=== PATIENT | male | born 2000 | race Caucasian/White ===

== ENCOUNTER 2021-08-16 18:50 | Emergency (ER) | payer MEDICAID, OTHER ==
[~2021-08-16] VITALS: Ht 180.3 cm; Wt 122.5 kg
[2021-08-16 19:32] VITALS: BP 150/102
[2021-08-16] MEDS ORDERED: RX-ALBUTEROL INHALER 8.5 GM HFA (PROAIR) IH STA (19:57)
[2021-08-16] MEDS ORDERED: RX-ONDANSETRON 4 MG ODT (ZOFRAN) PPK #4 PO STA (19:57)
--- NOTE | 2021-08-16 20:22 | Diagnostic Imaging Report ---
INDICATION: SOA. TECHNIQUE: Single view chest 8:06 PM. CORRELATION STUDY: None FINDINGS: The heart size, mediastinal configuration and pulmonary vascularity are within normal limits. The lungs are clear with no consolidating infiltrate. There is no significant effusion or pneumothorax. IMPRESSION: 1. Negative for acute abnormality of the chest. Dictated by: Dictated on workstation # [id number]
--- NOTE | 2021-08-16 20:43 | ED Cough/URI ---
General Chief Complaint: Cough/Cold/Flu Symptoms Stated Complaint: SHIPMAN, COUGH, DIZZY, CONGESTION Nursing Triage Note: Pt arrives via POV from home for c/o cough, SOB on exertion, et generally not feeling well; onset four days ago. Pt reports taking a COVID test at the onset of his symptoms et the day after, both with negative results. Pt reports taking a hot shower today et felt like he may pass out. Pt also reports intermittent N/V. History of Present Illness Date Seen by Provider: Aug 16, 2021 Time Seen by Provider: 19:32 Initial Comments 20-year-old male reports cough and congestion that began approximately 4 days ago. He took a Covid test on the day of symptoms and the day after they started with a negative result. He has received his first and second vaccine in approximately February and March 2021. He does not have a specific known e xposure to Covid. He has not received a flu vaccine. He has been taking Zohra- Upsala cough and cold medicine. He has had any nausea or vomiting in 3 days. He denies any diarrhea. He reports normal appetite and intake. Timing/Duration: intermittent Severity/Quality: mild, productive cough Prior Episodes/Possible Cause: no prior episodes Modifying Factors: Improves With Rest Associated Symptoms: cough, muscle aches, nasal congestion Allergies and Home Medications Allergies Coded Allergies: No Known Drug Allergies (Unverified , 08/16/21) Patient Home Medication List Home Medication List Reviewed: Yes Review of Systems Review of Systems Constitutional: see HPI, weakness EENTM: see HPI, nose congestion Respiratory: see HPI, cough; No dyspnea on exertion, No short of breath Cardiovascular: no symptoms reported, see HPI Gastrointestinal: no symptoms reported, see HPI; No nausea, No vomiting Musculoskeletal: no symptoms reported, see HPI All Other Systems Reviewed Negative Unless Noted: Yes Past Fkamnfp-Pyfkbd-Cbkuvt Hx Patient Social History Tobacco Use?: No Use of E-Cig and/or Vaping dev: No Substance use?: No Alcohol Use?: No Pt feels they are or have been: No Immunizations Up To Date Influenza Vaccine Up-to-Date: No; Not Current COVID19 Vaccine Systems [employer]: [employer] Medical History Reviewed Nursing Family Hx Physical Exam Vital Signs - First Documented 08/16/21 19:32 Temp 37.1 Pulse 89 Resp 18 B/P (MAP) 150/102 (118) Pulse Ox 98 O2 Delivery Room Air Capillary Refill : Less Than 3 Seconds Height: '" Weight: lbs. oz. kg; 37.00 BMI Method: General Appearance: WD/WN, no apparent distress HEENT: PERRL/EOMI, normal ENT inspection, TMs normal, pharynx normal Neck: non-tender, full range of motion, supple, normal inspection Respiratory: chest non-tender, no respiratory distress, no accessory muscle use, decreased breath sounds Cardiovascular: normal peripheral pulses, regular rate, rhythm Gastrointestinal: normal bowel sounds, non tender, soft Neurologic/Psychiatric: no motor/sensory deficits, alert, normal mood/affect, oriented x 3 Skin: normal color, warm/dry Progress/Results/Core Measures Suspected Sepsis SIRS Temperature: Pulse: 89 Respiratory Rate: 18 Blood Pressure 150 /102 Mean: 118 Results/Orders Lab Results Laboratory Tests Test 08/16/21 19:27 Range/Units Influenza Type A Antigen NEGATIVE NEGATIVE Influenza Type B Antigen NEGATIVE NEGATIVE My Orders Orders - FRANCESCA ALVA Coronavirus Sars-Cov-2 So 2018 (08/16/21 19:43) Influenza A & B Antigens (08/16/21 19:44) Chest 1 View, Ap/Pa Only (08/16/21 19:56) Rx-Ondansetron Po (Rx-Zofran Po) (08/16/21 19:57) Rx-Albuterol Inhaler (Rx-Ventolin Hfa In (08/16/21 19:57) Vital Signs/I&O 08/16/21 08/16/21 19:32 19:32 Temp 37.1 Pulse 89 Resp 18 B/P (MAP) 150/102 (118) Pulse Ox 98 O2 Delivery Room Air Room Air Capillary Refill : Less Than 3 Seconds Blood Pressure Mean: 118 Diagnostic Imaging Diagonstic Imaging: Xray Plain Films/CT/US/NM/MRI: chest Comments NAME: [facility] REC#: [id number] PT STATUS: REG ER : 2000 PHYSICIAN: FRANCESCA ALVA ADMIT DATE: 08/16/21/ER Draft Date of Exam:08/16/21 CHEST 1 VIEW, AP/PA ONLY INDICATION: SOA. TECHNIQUE: Single view chest 8:06 PM. CORRELATION STUDY: None FINDINGS: The heart size, mediastinal configuration and pulmonary vascularity are within normal limits. The lungs are clear with no consolidating infiltrate. There is no significant effusion or pneumothorax. IMPRESSION: 1. Negative for acute abnormality of the chest. Dictated on workstation # [id number] Dict: 08/16/212020 Trans: 08/16/212020 DO [id number] Interpreted by: EBER BOSE DO Electronically signed by: Reviewed: Reviewed by Me Departure Impression Primary Impression: Person under investigation for COVID-19 Additional Impression: Cough Disposition: HOME, SELF-CARE Condition: Improved Departure-Patient Inst. Decision time for Depature: 20:40 Referrals: LIANG NÚÑEZ MD (PCP/Family) Primary Care Physician Patient Instructions: COVID-19 (DC) Add. Discharge Instructions: Use the inhaler 2 puffs every 4-6 hours as needed for shortness of breath or chest tightness. Use the Zofran every 6-8 hours for nausea or vomiting. Continue to take your Zohra-Upsala cough and cold medicine. Drink 16 oz of Water every 2 hours, while awake. Walk for 5 to 10 minutes every hour while awake and take deep breaths. Take a multivitamin with vitamin C, D and zinc. Call your primary care provider if your symptoms are not improving or worsen. Sleep on your stomach. Alternate between Tylenol 650 mg and ibuprofen 600 mg every 4 hours as needed for fever or general discomfort Live as if you have Covid, quarantine at home. We will call you in 48 to 72 hours with your Covid results. Return to emergency department for new, urgent healthcare needs. All discharge instructions reviewed with patient and/or family. Voiced understanding. FRANCESCA ALVA Aug 16, 2021 20:43
== END 2021-08-16 21:00 | disposition home or self-care (01) ==
LOC: ER 18:51
DX: R05.1 Acute cough (principal); Z20.822 Contact with and (suspected) exposure to COVID-19
CPT/HCPCS: 71045; 87635; 87804